=== PATIENT | female | born 1935 | race Caucasian/White ===

== ENCOUNTER 2022-08-22 06:53 | Observation (INO) ==
[2022-08-22] MEDS ORDERED: NITROGLYCERIN SL 0.4 MG TABLET SL PRN (07:29)
[2022-08-22] MEDS ORDERED: ASPIRIN 325 MG TABLET PO STA (07:29)
[2022-08-22 07:38] LABS: Hematocrit 34.3 VOL% (35.7-47.0); Hemoglobin 10.5 GM/DL (12.0-16.0); Immature Granulocytes % 0.5 %; Immature Granulocytes Absolute 0.04 #; Lymphocytes # 1.8 10*3/uL (1.4-4.0); Lymphocytes % 21.7 % (21.3-54.2); Mean Corpuscular HGB Conc 30.6 GM/DL (32-36); Mean Corpuscular Volume 92.5 FL (87-102); Mean Platelet Volume 11.3 FL (9.6-12.0); Monocytes # 2.8 10*3/uL (0.11-0.8); Monocytes % 34.8 % (1.7-12.7); Platelet Count 125 T/CUMM (130-400); Red Blood Count 3.71 MC/CUMM (3.8-5.5); Red Cell Distribution Width 13.9 % (9.3-17.3); White Blood Count 8.2 T/CUMM (4-12)
[2022-08-22 07:54] LABS: Albumin 3.7 G/DL (3.4-5.0); Bilirubin,Total 0.7 MG/DL (0.20-1.00); Calcium 8.6 MG/DL (8.5-10.1); Osmolality,Calculated 274.7 MOS/KG (273-304); Potassium 4.6 MMOL/L (3.5-5.1); Total Protein 7.4 G/DL (6.4-8.2)
[2022-08-22 08:48] LABS: Lymphocytes 18 % (20-55); Total Cells Counted 100
[2022-08-22] MEDS ORDERED: hydrALAZINE 20 MG/1 ML VIAL IV STA (08:49)
[2022-08-22 08:51] LABS: Hypochromia 1+
[2022-08-22 08:52] LABS: Atypical Lymphocytes Few
[2022-08-22 08:54] LABS: Platelet Estimate Adequate
[2022-08-22] MEDS: ASPIRIN EC 81 MG TABLET PO SCH (11:57)
[2022-08-22] MEDS: amLODIPine 5 MG TABLET PO SCH (11:57)
[2022-08-22] MEDS: PANTOPRAZOLE 40 MG TABLET PO SCH (11:57)
[2022-08-22] MEDS: IBUPROFEN 200 MG TABLET PO PRN ×2 (12:01→21:34)
[2022-08-22] MEDS ORDERED: ALUM/MAG/SIMETH/LIDO VISC 1:1 30 ML BOTTLE PO ONE (15:18)
[2022-08-22] MEDS ORDERED: METOPROLOL TARTRATE 5 MG/5 ML VIAL IV ONE (19:20)
[2022-08-22] MEDS ORDERED: ENOXAPARIN 40 MG/0.4 ML SYRINGE SUBCUT SCH (21:00)
[2022-08-23 06:12] LABS: Calcium 8.7 MG/DL (8.5-10.1); Osmolality,Calculated 274.8 MOS/KG (273-304); Potassium 3.8 MMOL/L (3.5-5.1); Risk Ratio 2.33; VLDL Cholesterol 13.2 MG/DL
[2022-08-23 06:21] LABS: Basophils % 0.1 % (0.0-0.8); Hematocrit 32.4 VOL% (35.7-47.0); Hemoglobin 9.5 GM/DL (12.0-16.0); Immature Granulocytes % 0.6 %; Immature Granulocytes Absolute 0.05 #; Lymphocytes # 2.9 10*3/uL (1.4-4.0); Lymphocytes % 35.1 % (21.3-54.2); Mean Corpuscular HGB Conc 29.3 GM/DL (32-36); Mean Corpuscular Volume 93.4 FL (87-102); Mean Platelet Volume 12.2 FL (9.6-12.0); Monocytes # 3.5 10*3/uL (0.11-0.8); Monocytes % 42.3 % (1.7-12.7); Neutrophils % 21.9 % (38.7-73.9); Platelet Count 102 T/CUMM (130-400); Red Blood Count 3.47 MC/CUMM (3.8-5.5); Red Cell Distribution Width 14.1 % (9.3-17.3); White Blood Count 8.2 T/CUMM (4-12)
[2022-08-23 08:48] VITALS: BP 112/79
[2022-08-23] MEDS: amLODIPine 5 MG TABLET PO SCH (09:02)
[2022-08-23] MEDS: PANTOPRAZOLE 40 MG TABLET PO SCH (09:02)
[2022-08-23] MEDS: ASPIRIN EC 81 MG TABLET PO SCH (09:02)
[2022-08-23 09:48] LABS: Anisocytosis Slight; Atypical Lymphocytes Few; Band Neutrophils 1 % (0-10); Lymphocytes 29 % (20-55); Platelet Estimate Adequate; Total Cells Counted 100
== END 2022-08-23 12:00 | disposition home or self-care (01) ==
LOC: N.ED 06:53 → N.EDINP 06:53 → N.2W 12:06
PROVIDERS: ADMIT Internal Medicine; ATTEND Internal Medicine